=== PATIENT | male | born 1975 | race Two or more races ===

== ENCOUNTER 2020-08-11 13:35 | Emergency (ER) | payer MEDICAID ==
[~2020-08-11] VITALS: Ht 177.8 cm; Wt 84.0 kg
[2020-08-11 13:38] VITALS: BP 126/76
[2020-08-11] MEDS ORDERED: ACETAMINOPHEN 325MG TABLET PO ONE (14:00)
== END 2020-08-11 14:56 | disposition home or self-care (01) ==
LOC: ER 13:35
DX: M25.531 Pain in right wrist (principal)
CPT/HCPCS: 73110; 99283